=== PATIENT | female | born 1985 | race Caucasian/White ===

== ENCOUNTER 2018-12-19 08:33 | Emergency (ER) | payer OTHER ==
--- NOTE | 2018-12-19 09:45 | RAD REPORT ---
EXAM DESCRIPTION: RAD - Chest Pa And Lat (2 Views) - 12/19/2018 9:29 am CLINICAL HISTORY: left pleuritic pain;Chest pain Chest pain. COMPARISON: Chest Pa And Lat (2 Views) dated 10/06/2017 FINDINGS: The lungs are clear. The heart is normal in size. Thoracic dextroscoliosis is present, mod erate in severity.
[2018-12-19] MEDS ORDERED: KETOROLAC 30 MG/ML INJ ONE (09:50)
[2018-12-19 09:51] LABS: Absolute Lymphocytes (CBC) 2.1 K/uL (0.7-4.9); Absolute Monocytes 0.4 K/uL (0.1-1.3); Absolute Neutrophil 5.3 K/uL (1.8-8.0); Basophils % 0.4 % (0-1.3); Eosinophils % 2.4 % (0-4.4); Hematocrit 36.5 % (36.0-45.0); Lymphocytes % 25.8 % (15.3-44.8); MPV 8.5 fL (7.6-11.3); Monocytes % 5.3 % (3.3-12.3); RBC Red Blood Cell Count 4.05 M/uL (3.86-4.86)
[2018-12-19 10:05] LABS: Urine Blood 1+ (NEG); Urine Glucose NEGATIVE (NEG); Urine Protein NEGATIVE (NEG); Urine pH 5.5 (5.0-7.0)
[2018-12-19 10:09] LABS: BUN Blood Urea Nitrogen 10 mg/dL (7-18); Bicarbonate 27 mmol/L (21-32); Glucose Level 88 mg/dL (74-106); Potassium 3.6 mmol/L (3.5-5.1); Sodium Level 142 mmol/L (136-145)
--- NOTE | 2018-12-19 10:52 | RAD REPORT ---
EXAM DESCRIPTION: CT - Chest For Pe Angio - 12/19/2018 10:33 am CLINICAL HISTORY: Chest pain COMPARISON: 2015 TECHNIQUE: Dynamically enhanced axial 3 mm thick images of the chest were obtained during administra tion of <100> mL Isovue 370 IV contrast. Coronal and oblique reconstruction images were generated and reviewed. Exam utilizes a protocol for optimal evaluation of pulmonary arterial tree. Maximum intensity projections 3D imaging was utilized All CT scans are performed using dose optimization technique as appropriate and may include automated exposure control or mA/KV adjustment according to patient size. FINDINGS: A pulmonary embolus is not seen. A thoracic aortic aneurysm is not noted. A pleural effusion is not seen. A pericardial effusion is not seen. A lung consolidation is not present. IMPRESSION: Negative for a pulmonary embolism.
--- NOTE | 2018-12-19 10:52 | EKG ---
Test Date: 2018-12-19 Test Time: 09:16:38 Salary Manager: CRYSTAL MEASUREMENT RESULTS: Intervals: Rate: 58 VA: 174 QRSD: 74 QT: 402 QTc: 394 [place]: P: 51 VA: 174 QRS: 96 T: 72 INTERPRETIVE STATEMENTS: Sinus bradycardia Rightward axis Borderline ECG Compared to ECG 10/06/2017 07:40:26 Sinus rhythm no longer present Sinus arrhythmia no longer present Electronically Signed On 12-19-18 10:51:43 CDT by Jc Gottlieb
--- NOTE | 2018-12-19 11:01 | ER ---
Nurse's Notes [facility] Name: Jennifer Copeland Age: 33 yrs Sex: Female : 1985 Arrival Date: 12/19/2018 Time: 08:36 Bed 19 Private MD: India Steinberg Diagnosis: Pleurisy Presentation: 12/19 08:53 Presenting complaint: Patient states: pain to left lateral chest wall when breathing, iw since 0300 today, feels crackling when she breathes, denies cough or injury, states feels similar to when she had pleurisy. Transition of care: patient was not received from another setting of care. Onset of symptoms was December 19, 2018. 08:53 Method Of Arrival: Ambulatory iw 08:57 Risk Assessment: Do you want to hurt yourself or someone else? Patient reports no iw desire to harm self or others. Initial Sepsis Screen: Does the patient meet any 2 criteria? No. Patient's initial sepsis screen is negative. Does the patient have a suspected source of infection? No. Patient's initial sepsis screen is negative. Care prior to arrival: None. 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 - Social history:: Smoking status: . - Ebola Screening: : Patient negative for fever greater than or equal to 101.5 degrees Fahrenheit, and additional compatible Ebola Virus Disease symptoms Patient denies exposure to infectious person Patient denies travel to an Ebola-affected area in the 21 days before illness onset No symptoms or risks identified at this time. - Family history:: Mother has/had cancer. - Hospitalizations: : No recent hospitalization is reported. Screenin:53 Abuse screen: Denies threats or abuse. Denies injuries from another. Nutritional hj screening: No deficits noted. Tuberculosis screening: No symptoms or risk factors identified. Fall Risk None identified. Assessment: 08:53 General: Appears in no apparent distress. uncomfortable, Behavior is calm, cooperative, hj appropriate for age. Pain: Complains of pain in left lateral posterior chest Pain does not radiate. Pain began. Neuro: Level of Consciousness is awake, alert, obeys commands, Oriented to person, place, time, situation, Appropriate for age. Cardiovascular: Reports chest pain, Heart tones S1 S2 present Capillary refill < 3 seconds Patient's skin is warm and dry. Respiratory: Airway is patent Respiratory effort is even, unlabored, Respiratory pattern is regular, symmetrical. GI: No signs and/or symptoms were reported involving the gastrointestinal system. : No signs and/or symptoms were reported regarding the genitourinary system. EENT: No signs and/or symptoms were reported regarding the EENT system. Derm: No signs and/or symptoms reported regarding the dermatologic system. Musculoskeletal: No signs and/or symptoms reported regarding the musculoskeletal system. 09:20 Reassessment: Patient and/or family updated on plan of care and expected duration. Pain hj level reassessed. Patient is alert, oriented x 3, equal unlabored respirations, skin warm/dry/pink. wheeled to XRAY;. 11:10 Reassessment: Patient and/or family updated on plan of care and expected duration. Pain hj level reassessed. Patient is alert, oriented x 3, equal unlabored respirations, skin warm/dry/pink. D/C instructions given;. Vital Signs: 08:58 BP 118 / 70; Pulse 64; Resp 16; Pulse Ox 100% on R/A; Weight 50.35 kg; Height 5 ft. 4 iw in. (162.56 cm); Pain 7/10; 09:15 BP 115 / 68; Pulse 65; Resp 18; Pulse Ox 100% on R/A; hj 10:38 BP 131 / 75; Pulse 58; Resp 18; Pulse Ox 100% on R/A; hj 11:10 BP 120 / 66; Pulse 60; Resp 18; Temp 97.8(TE); Pulse Ox 100% on R/A; hj 08:58 Body Mass Index 19.05 (50.35 kg, 162.56 cm) iw ED Course: 08:36 Patient arrived in ED. rg4 08:37 India Steinberg is Private Physician. rg4 08:40 Jose Wong MD is Attending Physician. rn 08:53 Patient has correct armband on for positive identification. Placed in gown. Bed in low hj position. Call light in reach. Side rails up X 1. classroom monitor on. Pulse ox on. NIBP on. 08:53 Patient maintains SpO2 saturation greater than 95% on room air. hj 08:57 Triage completed. iw 08:58 Arm band placed on. iw 09:10 Jim Davalos, RN is Primary Nurse. hj 09:28 XRAY Chest Pa And Lat (2 Views) In Process Unspecified. EDMS 09:28 EKG done, by pump technician. reviewed by Jose Wong MD. at1 09:30 No provider procedures requiring assistance completed. Initial lab(s) drawn, by wa, hj sent to lab. Inserted saline lock: 22 gauge in right antecubital area, using aseptic technique. Blood collected. 09:48 Radiology exam delayed due to lab results not completed at this time. (BUN/Creatinine) test not completed at this time. 10:[address] sj 10:33 CT Chest For PE Angio In Process Unspecified. EDMS 11:11 IV discontinued, intact, bleeding controlled, No redness/swelling at site. Pressure hj dressing applied. Administered Medications: 09:50 Drug: TORadol - Ketorolac 15 mg Route: IVP; Site: right antecubital; hj 10:38 Follow up: Response: No adverse reaction; Pain is decreased hj Outcome: 11:00 Discharge ordered by . rn 11:11 Discharged to home ambulatory, with family. hj 11:11 Condition: stable 11:11 Discharge instructions given to patient, family, Instructed on discharge instructions, follow up and referral plans. medication usage, Demonstrated understanding of instructions, follow-up care, medications, Prescriptions given X 2. 11:13 Patient left the ED. Signatures: Dispatcher [employer] Fe Hunter Irene, RN RN iw Nieto, Roman, MD MD rn Gonzales, Amanda, beck tender EKG Tat1 Jim Davalos RN RN hj Garcia, Rubi rg4 Corrections: (The following items were deleted from the chart) 10:15 08:57 Acuity: KIMI 4 iw iw
--- NOTE | 2018-12-19 11:01 | EDPHYS ---
Physician Documentation [facility] Name: Jennifer Copeland Age: 33 yrs Sex: Female : 1985 Arrival Date: 12/19/2018 Time: 08:36 Bed 19 Private MD: India Steinberg ED Physician Jose Wong HPI: 12/19 09:20 This 33 yrs old Female presents to ER via Ambulatory with complaints of Chest rn Pain. 09:20 The patient or guardian reports chest pain that is located primarily in the left rn lateral posterior chest. The pain does not radiate. Associated signs and symptoms: Pertinent positives: shortness of breath, Pertinent negatives: abdominal pain, cough, diaphoresis, dizziness, lightheadedness, palpitations, recent travel, syncope, vomiting. The chest pain is described as sharp, stabbing. Duration: The patient or guardian reports multiple episodes, that are intermittent. Modifying factors: The symptoms are alleviated by nothing. the symptoms are aggravated by deep breath. Severity of pain: At its worst the pain was moderate in the emergency department the pain is unchanged. The patient has experienced a previous episode. Reports left sided chest pain, sharp, with deep breath, mild sob with deep breath, no fever/cough. Has had once before and diagnosed with pleurisy, vapes, no hemoptysis. . 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 - Social history:: Smoking status: . - Ebola Screening: : Patient negative for fever greater than or equal to 101.5 degrees Fahrenheit, and additional compatible Ebola Virus Disease symptoms Patient denies exposure to infectious person Patient denies travel to an Ebola-affected area in the 21 days before illness onset No symptoms or risks identified at this time. - Family history:: Mother has/had cancer. - Hospitalizations: : No recent hospitalization is reported. ROS: 09:20 Constitutional: Negative for fever, chills, and weight loss, Eyes: Negative for injury, rn pain, redness, and discharge, Neck: Negative for injury, pain, and swelling, Cardiovascular: Negative for palpitations, and edema, Respiratory: Negative for cough, wheezing Abdomen/GI: Negative for abdominal pain, nausea, vomiting, diarrhea, and constipation, MS/Extremity: Negative for injury and deformity, Skin: Negative for injury, rash, and discoloration, Neuro: Negative for headache, weakness, numbness, tingling, and seizure. Exam: 09:20 Constitutional: This is a well developed, well nourished patient who is awake, alert, rn appears uncomfortable, holding left chest Head/Face: Normocephalic, atraumatic. Eyes: Pupils equal round and reactive to light, extra-ocular motions intact. Lids and lashes normal. Conjunctiva and sclera are non-icteric and not injected. Cornea within normal limits. Periorbital areas with no swelling, redness, or edema. ENT: MMM, no stridor Cardiovascular: Regular rate and rhythm. No pulse deficits. Respiratory: Diminished bilateral bases, no wheezing, no retractions Abdomen/GI: soft, non-tender MS/ Extremity: Pulses equal, no cyanosis. Neurovascular intact. Full, normal range of motion. Equal circumference. Neuro: Awake and alert, GCS 15, oriented to person, place, time, and situation. Cranial nerves II-XII grossly intact. Motor strength 5/5 in all extremities. Sensory grossly intact. Cerebellar exam normal. Normal gait. 09:24 ECG was reviewed by the Attending Physician. rn Vital Signs: 08:58 BP 118 / 70; Pulse 64; Resp 16; Pulse Ox 100% on R/A; Weight 50.35 kg; Height 5 ft. 4 iw in. (162.56 cm); Pain 7/10; 09:15 BP 115 / 68; Pulse 65; Resp 18; Pulse Ox 100% on R/A; hj 10:38 BP 131 / 75; Pulse 58; Resp 18; Pulse Ox 100% on R/A; hj 11:10 BP 120 / 66; Pulse 60; Resp 18; Temp 97.8(TE); Pulse Ox 100% on R/A; hj 08:58 Body Mass Index 19.05 (50.35 kg, 162.56 cm) iw MDM: 08:40 Patient medically screened. rn 10:23 Counseling: I had a detailed discussion with the patient and/or guardian regarding: rn smoking cessation. 11:00 Differential diagnosis: acute pericarditis, chest wall pain, costochondritis, rn esophagitis, pericarditis, pleurisy, pneumonia, pneumothorax, pulmonary embolus. Data reviewed: vital signs, nurses notes, lab test result(s), EKG, radiologic studies, CT scan, plain films, and as a result, I will discharge patient. 12/19 09:33 Order name: CBC with Diff; Complete Time: 10:21 12/19 09:33 Order name: Basic Metabolic Panel; Complete Time: 10:21 12/19 08:51 Order name: XRAY Chest Pa And Lat (2 Views); Complete Time: 10:21 12/19 09:33 Order name: Urine Microscopic Only 12/19 09:54 Order name: Urine Dipstick--Ancillary (enter results); Complete Time: 10:21 12/19 09:54 Order name: Urine --Ancillary (enter results); Complete Time: 10:21 12/19 08:51 Order name: EKG; Complete Time: 08:51 12/19 08:51 Order name: EKG - Nurse/Tech; Complete Time: 09:30 12/19 09:33 Order name: IV Start; Complete Time: 09:52 12/19 09:33 Order name: Urine Test (obtain specimen); Complete Time: 09:52 12/19 09:33 Order name: Urine Dipstick-Ancillary (obtain specimen); Complete Time: 09:52 12/19 09:33 Order name: CT Chest For PE Angio; Complete Time: 10:59 rn EC:24 Rate is 58 beats/min. Rhythm is regular. Right axis deviation noted. QRS is positive in rn lead aVF and negative in lead I. [place] interval is normal. QRS interval is normal. QT interval is normal. No Q waves. T waves are Normal. No ST changes noted. Clinical impression: Sinus bradycardia. Interpreted by me. Reviewed by me. Administered Medications: 09:50 Drug: TORadol - Ketorolac 15 mg Route: IVP; Site: right antecubital; hj 10:38 Follow up: Response: No adverse reaction; Pain is decreased Disposition: 12/19/18 11:00 Discharged to Home. Impression: Pleurisy. - Condition is Stable. - Discharge Instructions: Pleurisy. - Prescriptions for Prednisone 20 mg Oral Tablet - take 3 tablet by ORAL route once daily for 5 days; 15 tablet. Ibuprofen 800 mg Oral Tablet - take 1 tablet by ORAL route every 12 hours As needed take with food; 20 tablet. - Medication Reconciliation Form, Thank You Letter, Antibiotic Education, Prescription Opioid Use, Work release form form. - Follow up: Private Physician; When: As needed; Reason: Recheck today's complaints, Re-evaluation by your physician. - Problem is new. - Symptoms have improved. Signatures: Dispatcher [employer] EDMS Katy Montemayor RN RN iw Nieto, Roman, MD MD rn Joaquin, Henry, RN RN hj Corrections: (The following items were deleted from the chart) 11:13 11:00 12/19/2018 11:00 Discharged to Home. Impression: Pleurisy. Condition is Stable. hj Forms are Medication Reconciliation Form, Thank You Letter, Antibiotic Education, Prescription Opioid Use. Follow up: Private Physician; When: As needed; Reason: Recheck today's complaints, Re-evaluation by your physician. Problem is new. Symptoms have improved. rn
[2018-12-19 11:15] LABS: Urine Bacteria 20-50 /HPF (<20); Urine Culture Reflex Order REFLEXED
[2018-12-19 18:19] VITALS: O2SAT 100
[2018-12-19 18:23] VITALS: BP 120/66; TEMP 97.8
== END 2018-12-19 11:13 | disposition home or self-care (01) ==
LOC: ER 08:33
DX: R09.1 Pleurisy (principal)
CPT/HCPCS: 36415; 71046; 71275; 80048; 81003; 81015; 81025; 85025; 87086; 87088; 93005; 96374; 99285; Q9967